=== PATIENT | female | born 2005 | race Caucasian/White ===

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

== ENCOUNTER 2024-03-07 16:10 | Emergency (ER) | payer OTHER, SELFPAY ==
[2024-03-07 16:16] VITALS: BP 117/78; PULSE 103; RESP 16; TEMP 36.9; O2SAT 98; BMI 24.0
--- NOTE | 2024-03-07 17:45 | ED.NURSE ---
Pt provided with meal tray.
[2024-03-07] MEDS: LORazepam 1 MG TABLET PO (18:19)
[2024-03-07 18:59] LABS: Amphetamine Screen Urine POSITIVE (Negative); Barbiturate Screen Urine Negative (Negative); Benzodiazepines Screen Urine Negative (Negative); Cannabinoid Screen Urine Negative (Negative); Cocaine Screen Urine Negative (Negative); Methadone Screen Urine Negative (Negative); Methamphetamines Screen Urine Negative (Negative); Opiate Screen Urine Negative (Negative); Oxycodone Screen Urine Negative (Negative); Phencyclidine Screen Urine Negative (Negative); Tricyclic Antidepressant Urine Negative (Negative)
[2024-03-07 19:07] LABS: Ur HCG Qualitative* Negative (Negative)
[2024-03-07 19:17] LABS: Basophils Absolute Auto 0.03 K/uL (0.00-0.30); Basophils Percent Auto 0.4 % (0.0-3.0); Eosinophils Absolute Auto 0.06 K/uL (0.00-0.50); Eosinophils Percent Auto 0.8 % (0.0-7.0); Hematocrit 39.5 % (33.0-51.0); Hemoglobin* 13.2 gm/dL (12.0-16.0); Immature Granulocytes Abs Auto 0.02 K/uL (0.00-0.30); Immature Granulocytes Pct Auto 0.3 %; Lymphocytes Absolute Auto 2.54 K/uL (0.90-2.90); Lymphocytes Percent Auto 34.9 % (20-44); Mean Corpuscular HGB Conc 33 gm/dL (32-36); Mean Corpuscular Hemoglobin 31 pg (26-34); Mean Corpuscular Volume 93 fL (80-100); Monocytes Percent Auto 6.2 % (0.0-11.0); Neutrophils Absolute Auto 4.17 K/uL (1.7-7.0); Neutrophils Percent Auto 57.4 % (42.0-72.0); Platelet Count* 197 K/uL (140-440); RDW Coefficient of Variation % 12.2 % (11.5-15.5); Red Blood Count 4.25 m/uL (4.00-5.20); White Blood Count* 7.27 K/uL (4.50-11.00)
[2024-03-07 19:18] LABS: PCR FLU A Negative PCR FLU A (Negative); PCR FLU B Negative PCR FLU B (Negative); SARS PCR* Negative SARS-CoV-2 (Negative)
[2024-03-07 19:29] LABS: Slide Review Reflex No
[2024-03-07 19:32] LABS: Albumin* 4.6 g/dL (3.3-5.0); Chloride* 102 mmol/L (96-114); Sodium* 136 mmol/L (135-149)
[2024-03-07 19:33] LABS: Potassium* 3.7 mmol/L (3.6-5.1)
[2024-03-07 19:35] LABS: Alkaline Phosphatase* 73 U/L (40-150); Anion Gap 8 mEq/L (7-15); Aspartate Amino Transferase* 25 U/L (12-35); Bilirubin Total* 0.1 mg/dL (0.1-1.5); Blood Urea Nitrogen* 14 mg/dL (5-24); Carbon Dioxide* 26 mmol/L (20-32); Creatinine* 0.8 mg/dL (0.5-1.5); Est. Creatinine Clearance* 80.57; Estimated Glomerular Filt Rate 108 ml/min; Total Protein* 7.5 g/dL (6.0-8.3)
--- NOTE | 2024-03-07 19:35 | ED.NURSE ---
Mental health evaluation performed on patient. Copy made of mental health evaluation.
[2024-03-07 19:36] LABS: Alanine Aminotransferase* 19 U/L (4-35); Calcium* 9.4 mg/dL (8.4-10.6); Glucose* 102 mg/dL (60-115)
--- NOTE | 2024-03-07 20:06 | ED_ITS ---
HPI - General Adult General Date Seen: 03/07/24 Chief complaint: Psychiatric Problem/Disorder Stated complaint: hallucinations Audio/Visual Time Seen by Provider: 03/07/24 16:37 History of Present Illness HPI narrative: This is a 18-year-old female presenting to the ER today by EMS for evaluations of hallucinations, thoughts of self-harm, anxiety, poor sleep. History is obtained in part from the patient and is supplemented by an on-call provider for the [facility] (phone number [phone]) She has a history of depression and anxiety apparently diagnosed a couple of years ago. It sounds like she is from [facility]. Her parents are . Her father provides funds for her support. She has caller ships and relies on her mother to find her college education. She is a senior at [employer]. She started having a significant mental health problems last spring, in September, around final. She apparently became extremely stressed out. She was having. Where she was not sleeping for a few days. She was apparently having some hallucinations. She ended up seeing the student health counselors at [employer]. She was started on medications (Lexapro, bupropion, I think). She also required a leave from school and extension of her spring course work. She was able to complete her final and finish the year. She went home to [place], [place] for the summer. It sounds like her mother was resistant for her seeking any mental health counselors. She says her mother did not want the patient to waste her money on mental health treatment. She was given a couple of months supply of mental health meds by the student health service at [employer] beginning last September. She ran out probably in November. She entered herself into a partial hospitalization program in [place] and was there for a couple of weeks in December. She found the [facility] to be very helpful. In particular she thought that the group counseling sessions were very beneficial for her. It sounds like she was supposed to have had an outpatient follow-up visit with a psychiatrist from the [facility]. She was supposed to see that psychiatrist in that provider's own private office. It sounds like the appointment never occurred. It sounds like also her psychiatrist had recommended a medication change last summer, but she declined and wanted to stay on her same meds. Her provider did give her a 3 month supply of her meds to help manage her through the fall semester at school. She is planning to see that psychiatrist in clinic when she goes home to [place] for the holiday break. She came back to start the fallester at [employer] this year. She is living in a house which is provided by [employer] but with some other roommates so she does not know very well. The patient lives in a basement bedroom. It sounds like she is socially distant from her roommates. There have been some interpersonal conflict between the patient and her roommate because her roommates have 1 of throw parties at the house. Her roommate does not like the parties because a loud noise and makes it difficult for her to sleep. The patient also does not like all the strangers in the house using the restroom facilities. The patient has a bathroom in the basement which is close to her bedroom which is primarily her bathroom, although it is not specifically a bathroom intended for her exclusive use. It sounds like the constitution party started leading to stress where she was falling behind on her course work. Ultimately it sounds like she did go through some process with the [place] administration and there were meetings between the patient and her housemates. She says that she wanted her housemates to treat her with more respect. She says that she does not really talk much to her roommates and they generally do not acknowledge her. It sounds like she is pretty isolated in her home. She has been falling behind on her course work which is led to increasing stress. She has also been working hard on her senior thesis, but is falling behind on that. She does have 1 friend, a homosexual man, who she thinks is fairly supportive for her. She thinks he has bipolar disorder too. She notes that he is not always supportive. He likes to take at doubles. He has been trying to encourage her to use at a bowls with him, but she does not not like to use them (she has occasionally experimented in the past but does not like the feeling) so she has been refusing. It has gotten to the point where it has led to some interpersonal strife between her and her friend. She had to tell him to stop asking her to use edibles with him. About 2 or 3 weeks ago she had a period where she was behind on her course work and she was doing some all night is with her friends to try to catch up. She was not sleeping more than a couple of hours per night. She had a day or any evening where she was hallucinating and hearing her own voice shouting at herself. She became very alarmed and was worried that she might do something to harm herself. She had her friend stay with her. It sounds like the voices and hallucinations past after 1 night and she was more less back to normal (anxious, behind on her course work, but not hallucinating). Today she had a negative interaction with 1 of her college professors. This again triggered a lot of anxiety in her and she again had hallucinations for several hours where her voice was shouting negative thoughts at her. She began to feel unsafe and was worried that she might take pills to harm herself. She did not want to take pills. Hallucinations were all she so shouting at her that she needs to ?get help. ? She has not actually done anything to harm herself. She does not have any persistent thoughts of suicide and has not really been making plans lately. Additional history from her mental health clinic is that she apparently went to the clinic today to make an appointment with an MD. There were no slots available. She then did some phone calls to a crisis line. After talking with the crisis line about the hallucinations and feeling unsafe, they called 911 and brought her here to the ER. The mental health provider also notes that the patient has scheduled multiple appointments to arrange outpatient mental health care this fall but has then canceled them. She did attend 1 appointment in the medical clinic a couple weeks ago for a cold. It sounds like the patient really does not have good pattern of outpatient follow-up The patient says that non she that she is here she is not having loosen a shins. She feels safe here but she is worried if we discharge her home she will probably get back to that same situation. She is worried that if she gets discharged she will probably take pills to arm herself. Related Data Home Medications ?Medication ?Instructions ?Recorded ?Confirmed bupropion HCl 150 mg 24 hr tablet, 150 mg PO DAILY 03/07/24 03/07/24 extended release bupropion HCl 300 mg 24 hr tablet, 300 mg PO DAILY 03/07/24 03/07/24 extended release doxycycline monohydrate 100 mg 100 mg PO BID 10/14/24 10/14/24 capsule escitalopram oxalate 10 mg tablet PO 03/07/24 escitalopram oxalate 20 mg tablet PO 03/07/24 ferrous sulfate 325 mg (65 mg 325 mg PO BID 03/07/24 03/07/24 iron) tablet (FeroSul) trazodone 100 mg tablet 100 mg PO QPM PRN 03/07/24 03/07/24 Allergies Allergy/AdvReac Type Severity Reaction Status Date / Time No Known Drug Allergies Allergy Verified 04/05/22 18:11 [facility] Social History Smoking Status: Never smoker Do you use any of these nicotine containing products: None Second hand tobacco smoke exposure: No How often do you have a drink containing alcohol: never How often do you have six or more drinks on one occasion: Never AUDIT-C Alcohol total score: 0 Non-prescribed substance use: denies use service: No Exam Narrative: Exam Narrative: Constitutional: Appears well-developed and well-nourished. Alert. Conversant. Non toxic. HENT: Head: Atraumatic. Nose: Nose normal. Mouth/Throat: Oral mucosa is clear and moist. no trismus. Eyes: Conjunctivae normal. EOM normal. Pupils equal, round, and reactive to light. No scleral icterus. Neck: Normal range of motion. Neck supple. No tracheal deviation present. Cardiovascular: Normal rate, regular rhythm. No gallop. No friction rub. No murmur heard. Pulmonary/Chest: Effort normal. No stridor. No respiratory distress. No wheezes. No rales. No rhonchi . Musculoskeletal: RUE: Normal range of motion. No tenderness. No deformity LUE: Normal range of motion. No tenderness. No deformity RLE: Normal range of motion. No edema. No tenderness. No deformity LLE: Normal range of motion. No edema. No tenderness. No deformity Neurological: Alert and oriented to person, place, and time. Normal strength. CN II-VII intact. No sensory deficit. GCS eye subscore is 4. GCS verbal subscore is 5. GCS motor subscore is 6. Normal coordination Skin: Skin is warm and dry. No rash noted. No pallor. Normal capillary refill. Psychiatric: She is had anxious and feels very depressed. She is chewing her fingernails. Somewhat disorganized in her history. See HPI, which I tried to make chronological. Overall she is very passive when discussing the events in her life. She says that now that she is here in the ER she is not hearing voices or actively hallucinating. She says when she has auditory hallucinations she hears her own voice shouting at her from other places in the room. Sometimes her voice tells her to get help. Sometimes her voice says negative things about her. Sometimes her voice is shouting gibberish at her. She does not have any ongoing immediate thoughts of self-harm but is worried that if we discharge her home the auditory hallucinations will probably come back. She is feeling socially isolated from her housemates. She will really only has 1 fairly close friend. She is having some interpersonal negativity with him because he has been wanting her to use at a bowls with him. She does not have any romantic relationships. Her mother's in [place]. Mother was not supportive in her getting outpatient mental health care. The patient does have some insight into the fact that she is struggling. She wants inpatient mental health care and is voluntarily requesting it. She is worried that she will get back into a cycle of hallucinations and thoughts of self-harm if she does not go to inpatient care. Const: Vital Signs, click to edit/add: Vital Signs - 24 hr 03/07/24 16:16 03/07/24 20:17 03/08/24 00:30 Temperature 98.5 F 98.8 F 99 F Pulse Rate [Pulse Oximeter] 103 H 103 H 89 Respiratory Rate 16 16 16 Blood Pressure [Ri ght Upper Arm] 117/78 119/72 113/73 Pulse Oximetry 98 97 96 Oxygen Delivery Me thod Room Air Room Air Room Air Course Vital Signs Vital signs: Initial Vital Signs Temperature 98.5 F 03/07/24 16:16 Temperature Source Temporal Artery Scan 03/07/24 16:16 Pulse Rate 103 H 03/07/24 16:16 Respiratory Rate 16 03/07/24 16:16 Blood Pressure 117/78 03/07/24 16:16 Blood Pressure Mean 91 03/07/24 16:16 Blood Pressure Position Sitting 03/07/24 16:16 Pulse Oximetry 98 03/07/24 16:16 Oxygen Delivery Method Room Air 03/07/24 16:16 Vital Signs Temperature 98.5 F 03/07/24 16:16 Pulse Rate 103 H 03/07/24 16:16 Respiratory Rate 16 03/07/24 16:16 Blood Pressure 117/78 03/07/24 16:16 Pulse Oximetry 98 03/07/24 16:16 Oxygen Delivery Method Room Air 03/07/24 16:16 Temperature 99 F 03/08/24 00:30 Pulse Rate 89 03/08/24 00:30 Respiratory Rate 16 03/08/24 00:30 Blood Pressure 113/73 03/08/24 00:30 Pulse Oximetry 96 03/08/24 00:30 Oxygen Delivery Method Room Air 03/08/24 00:30 Medications Administered Medications: Discontinued Medications Generic Name Dose Route Start Last Admin Trade Name Freq PRN Reason Stop Dose Admin Lorazepam 1 mg 03/07/24 18:02 03/07/24 18:19 Lorazepam 1 Mg Tablet PO 03/07/24 18:03 1 mg ONCE ONE Administration Olanzapine 10 mg 03/08/24 00:32 03/08/24 00:41 Olanzapine 5 Mg Tab.Rapdis PO 03/08/24 00:33 10 mg ONCE ONE Administration Medical Decision Making MDM Narrative Medical decision making narrative: 18-year-old female presenting to the ER today by EMS from her college with concerns for hallucinations, anxiety, insomnia, and thoughts of self-harm. Patient does have a history of bipolar disorder and anxiety and depression. Also she reports she has been diagnosed with borderline personality disorder. She is chronically on Lexapro and bupropion. In the past she had been prescribed trazodone for sleep but she has not been taking it lately. She also takes Adderall for ADHD. She has been under increasing stress due to school work and interpersonal struggles with her housemates at college. She has been very behind her course work and has been struggling, staying up late at night to study and do her course work. A couple of weeks ago she had an episode of auditory hallucinations which sound like it was very negative for her. These were not command hallucinations but while she was loosening she was having thoughts of self-harm and thoughts that she might take pills. She had another episode of auditory hallucinations today and again had thoughts of self-harm. She called 911 after she reached out for outpatient help. She came voluntarily with emergency medical providers to the ER. She does want help. She would like to be admitted. She has done well in the past with a partial hospitalization program and group therapy and feels like she could do well with that again. She is worried that if we discharge her home she likely will have escalation of her hallucinations, escalation of anxiety, and may do something to herself. At the time she is here in the ER she says she does not want to hurt herself currently. She is cooperative. She is polite and interacts well with nurses. She was initially very anxious based on her behaviors and answers, vigorously chewing Her fingernails. Less anxious after oral Ativan. Since she is doing so well here in the ER, I was considering possible discharge with outpatient follow-up. I did reach out to the mental health clinic at [employer], where she is a student. They do have openings and could potentially see her as early as tomorrow morning. However they also note that she is made, and then failed to keep, several appointments already this fall. Although I do think there are potential resources available for this patient in the outpatient setting, she has displayed a pattern where she has been unable to follow through for outpatient care. It also sounds like she has pretty limited social supports in her college environment. Her mother lives in [place], [place]. It also sounds like her mother has been somewhat on supportive when she has sought outpatient mental health treatment in the past. Laboratory workup is reassuring. All blood work is normal. Urine drug screen is positive for amphetamines but negative for methamphetamine. She does take Adderall (not every day) for ADHD and this would explain her positive urine amphetamine screen. I do not think her hallucinations are due to amphetamine psychosis. She is not presenting with a sympathomimetic toxidrome. At this point with reasonable clinical judgment I think she is medically clear for inpatient mental health admission. Addendum-patient was accepted to inpatient mental health care at the [facility], in [place], [place] at around midnight. We completed her M tele packet and transfer paperwork. Unfortunately her transfer will be delayed by many hours because of EMS capacity. Were anticipating that she will likely be able to transfer at about 10:00 a.m. in the morning once ambulance rings become available. Therefore she left the board here in the ER overnight. I updated the patient around midnight. She was endorsing that some of her loose adhesions were coming back. Will add Zyprexa to help keep her calm sleep, and prevent occlusion is since overnight. She is agreeable. She understands the delay. Lab Data Labs: Lab Results 03/07/24 03/07/24 03/07/24 Range/Units 18:30 18:35 18:40 WBC 7.27 (4.50-11.00) K/uL RBC 4.25 (4.00-5.20) m/uL Hgb 13.2 (12.0-16.0) gm/dL Hct 39.5 (33.0-51.0) % MCV 93 (80-100) fL MCH 31 (26-34) pg MCHC 33 (32-36) gm/dL RDW Coeff of Marvin 12.2 (11.5-15.5) % Plt Count 197 (140-440) K/uL Neut % (Auto) 57.4 (42.0-72.0) % Lymph % (Auto) 34.9 (20-44) % [place] % (Auto) 6.2 (0.0-11.0) % Eos % (Auto) 0.8 (0.0-7.0) % Baso % (Auto) 0.4 (0.0-3.0) % Neut # (Auto) 4.17 (1.7-7.0) K/uL Lymph # (Auto) 2.54 (0.90-2.90) K/uL [place] # (Auto) 0.50 (0.00-0.90) K/UL Eos # (Auto) 0.06 (0.00-0.50) K/uL Baso # (Auto) 0.03 (0.00-0.30) K/uL Abs Immat Gran (auto) 0.02 (0.00-0.30) K/uL Imm/Tot Granulo (auto) 0.3 % Sodium 136 (135-149) mmol/L Potassium 3.7 (3.6-5.1) mmol/L Chloride 102 (96-114) mmol/L Carbon Dioxide 26 (20-32) mmol/L Anion Gap 8 (7-15) mEq/L BUN 14 (5-24) mg/dL Creatinine 0.8 (0.5-1.5) mg/dL Estimated Creat Clear 80.57 Estimated GFR 108 ml/min Glucose 102 (60-115) mg/dL Calcium 9.4 (8.4-10.6) mg/dL Total Bilirubin 0.1 (0.1-1.5) mg/dL AST 25 (12-35) U/L ALT 19 (4-35) U/L Alkaline Phosphatase 73 (40-150) U/L Total Protein 7.5 (6.0-8.3) g/dL Albumin 4.6 (3.3-5.0) g/dL TSH 2.740 (0.270-4.200) uIU/mL Urine HCG, Qual Negative (Negative) Salicylates < 1.0 L (1.0-10) mg/dL Urine Opiates Screen Negative (Negative) Ur Oxycodone Screen Negative (Negative) Urine Methadone Screen Negative (Negative) Acetaminophen < 10.0 L (10.0-30.0) ug/mL Ur Barbiturates Screen Negative (Negative) U Tricyclic Antidepress Negative (Negative) Ur Phencyclidine Scrn Negative (Negative) Ur Amphetamines Screen POSITIVE A (Negative) U Methamphetamines Scrn Negative (Negative) U Benzodiazepines Scrn Negative (Negative) Urine Cocaine Screen Negative (Negative) U Marijuana (THC) Screen Negative (Negative) Ur Drug Screen Comment See Note SARS-CoV-2 (PCR) Negative SARS-CoV-2 (Negative) Influenza Type A (PCR) Negative PCR FLU A (Negative) Influenza Type B (PCR) Negative PCR FLU B (Negative) Discharge Plan Discharge Clinical Impression: Auditory hallucinations, Thoughts of self harm, Anxiety Prescriptions: No Action trazodone 100 mg tablet 100 mg PO QPM PRN doxycycline monohydrate 100 mg capsule 100 mg PO BID ferrous sulfate [FeroSul] 325 mg (65 mg iron) tablet 325 mg PO BID escitalopram oxalate 10 mg tablet PO escitalopram oxalate 20 mg tablet PO bupropion HCl 300 mg tablet extended release 24 hr 300 mg PO DAILY bupropion HCl 150 mg tablet extended release 24 hr 150 mg PO DAILY Follow Up/Referrals: Provider,Not a Local [Primary Care Provider] -
[2024-03-07 20:17] VITALS: BP 119/72; PULSE 103; RESP 16; TEMP 37.1; O2SAT 97
[2024-03-07 20:30] LABS: Acetaminophen* < 10.0 ug/mL (10.0-30.0); Salicylate* < 1.0 mg/dL (1.0-10)
[2024-03-08 00:30] VITALS: BP 113/73; PULSE 89; RESP 16; TEMP 37.2; O2SAT 96
[2024-03-08] MEDS: OLANZapine 5 MG TAB.RAPDIS 10 MG PO (00:41)
--- NOTE | 2024-03-08 11:38 | ED.NURSE ---
Patient transferred to [place] via EMS.
== END 2024-03-08 11:47 | disposition short-term general hospital (02) ==
PROVIDERS: Emergency Provider Emergency Medicine
DX: R44.3 Hallucinations, unspecified (principal); F41.9 Anxiety disorder, unspecified; R45.851 Suicidal ideations
CPT/HCPCS: 36415; 80053; 80143; 80179; 80306; 81025; 84443; 85025; 87631; 99284; 99285; A9270

== ENCOUNTER 2024-03-08 11:32 | Outpatient (CLI) | payer OTHER, SELFPAY | END 2024-03-08 11:33 | disposition home or self-care (01) | LOC: AMB 03-13 10:21 | PROVIDERS: Visit Provider Emergency Medicine Emergency Medical Services | DX: R45.851 Suicidal ideations (principal); R44.0 Auditory hallucinations | CPT/HCPCS: A0425; A0427 ==

== ENCOUNTER 2024-03-26 22:18 | Outpatient (CLI) | payer OTHER, SELFPAY ==
--- OUTSIDE RECORDS SUMMARY | 2024-03-31 01:52 | XMS_ITS | Patient Health Record ---
Author Organization [facility] La Radha [facility] Address [address] [place], [place] [id number] Care Team Providers Care Multimedia Programmer Name Role Phone Gerardo Barnett Unavailable [phone] Reason For Referral No Information Immunizations Vaccine [...]
--- OUTSIDE RECORDS SUMMARY | 2024-03-31 01:52 | XMS_ITS | Clinical Summary ---
Author Organization [facility] Address [address] [place] [address] Care Team Providers Care Underground Distribution Engineer Name Role Phone Pcp, Pt Declines Primary Care Provider [phone] Source Comments You are receiving this document as you are listed as the primary care provider,follow-up provider, or the patient has been referred to you for consultation.This is in compliance with the Medicare and[facility] EHR Incentive Program,which states Providers who transition their patient to another setting of careor provider of care or refers their patient to another provider of care shouldprovide summary care record for each transition of care or referral. [facility] Allergies No known active allergies Medications Medication [...] Health Maintenance Due Date Last Done Comments Cervical Cancer Screening Due 2003 Chlamydia 2003 Hep C Screening (Preventive Services) [...] on patient's age to complete this topic Infant RSV Aged Out No longer eligi ble based on patient's age to complete this topic MCV4 Aged Out No longer eligi ble based on patient's age to complete this topic Pneumococcal Aged Out No longer eligi ble based on patient's age to complete this topic Care Teams Underground Distribution Engineer Relationship Specialty Start Date End Date Pcp, a[place]ul [place] [address] PCP - General 07/22/22
== END 2024-03-26 22:19 | disposition home or self-care (01) ==
LOC: AMB 03-31 01:50
PROVIDERS: Visit Provider Family Medicine
DX: F29 Unspecified psychosis not due to a substance or known physiological condition (principal)
CPT/HCPCS: A0425; A0427

== ENCOUNTER 2024-03-26 22:53 | Emergency (ER) | payer OTHER, SELFPAY ==
--- OUTSIDE RECORDS SUMMARY | 2024-03-26 22:57 | XMS_ITS | Patient Health Record ---
Author Organization [facility] Address [address] [place], [place] [id number] Care Team Providers Care Internal Combustion Engine Inspector Name Role Phone Gerardo Barnett Unavailable [phone] Reason For Referral No Information Immunizations Vaccine Route Administration Date Status Comme nts IH}FLU IM Intramuscular 04/05/2020 Administered Social History Alcohol Screen (Audit-C) Question Answer Notes Did you have a drink containing alcohol in the p ast year? No Points 0 Interpretation Negative Sexual History Question Answer Notes Had sex in the past 12 months (vaginal, oral, or anal)? No Have you ever had a Sexually transmitted disease ? No Last menstrual period 03/31/2020 Problems No Known Problems Plan Of Treatment No Information
--- OUTSIDE RECORDS SUMMARY | 2024-03-26 22:57 | XMS_ITS | Clinical Summary ---
Author Organization [facility] Address [id number] [address] Care Team Providers Care Preforming Machine Operator Name Role Phone Pcp, Pt Declines Primary Care Provider Source Comments You are receiving this document as you are listed as the primary care provider,follow-up provider, or the patient has been referred to you for consultation.This is in compliance with the Medicare and[facility] EHR Incentive Program,which states Providers who transition their patient to another setting of careor provider of care or refers their patient to another provider of care shouldprovide summary care record for each transition of care or referral. [id number] Allergies No known active allergies Medications Medication Sig Dispensed Refills Start Date End Date Status PROZAC 40 MG capsule Take 1 Capsule (40 mg) by mouth daily. 07/15/2022 Active Active Problems Problem Noted Date Diagnosed Date Severe episode of recurrent major depressive disorder, without psychotic features 08/20/2022 Generalized anxiety disorder 08/20/2022 Depressive disorder 07/24/2022 History of suicidal ideation 07/24/2022 Other specified eating disorder 07/23/2022 Social anxiety disorder 07/23/2022 Social History Tobacco Use Types Packs/Day Years Used Date Smoking Tobacco: Never Tobacco Cessation:Counseling Given: Not Answered Alcohol Use Standard Drinks/Week Comments Never 0 (1 standard drink = 0.6 oz pur e alcohol) Sex and Gender Information Value Date Recorded Sex Assigned at Not on file Gender Identity Not on file Sexual Orientation Not on file Last Filed Vital Signs Vital Sign Reading Time Taken Comments Blood Pressure 115/83 09/16/2022 7:48 AM CDT Pulse 86 09/16/2022 7:48 AM CDT Temperature 36.6 ??C (97.9 ??F) 09/16/2022 7:46 AM CD T Respiratory Rate - - Oxygen Saturation - - Inhaled Oxygen Concentration - - Weight 45 kg (99 lb 3.2 oz) 09/16/2022 7:46 AM C DT Height 153.4 cm (5' 0.39) 09/16/2022 7:46 AM CD T Body Mass Index 19.12 09/16/2022 7:46 AM CDT Plan of Treatment Health Maintenance Due Date Last Done Comments Chlamydia 2003 Hep C Screening (Preventive Services) 2003 HPV Vaccine (1 - 3-dose series) 2018 HIV Screening (Preventive Services) 2019 Adult Preventive Visit 2021 DTaP/Tdap/Td (1 - Tdap) 2022 HepB (1) 2022 COVID-19 Vaccine (1 - 2023-2 5 season) 2024 Influenza (#1) 2024 03/05/2021 Zoster/Shingles (1 of 2) 2053 HepA Aged Out No longer eligi ble based on patient's age to complete this topic Hib Aged Out No longer eligi ble based on patient's age to complete this topic IPV (Polio) Aged Out No longer eligi ble based on patient's age to complete this topic RSV Aged Out No longer eligi ble based on patient's age to complete this topic MCV4 Aged Out No longer eligi ble based on patient's age to complete this topic Pneumococcal Aged Out No longer eligi ble based on patient's age to complete this topic Care Teams Preforming Machine Operator Relationship Specialty Start Date End Date Pcp, [place] [address] PCP - General 07/22/22
[2024-03-26 23:03] VITALS: BP 131/82; PULSE 106; RESP 16; TEMP 36.6; O2SAT 99; BMI 20.8
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
[2024-03-27 00:46] LABS: Basophils Percent Auto 0.3 % (0.0-3.0); Eosinophils Percent Auto 0.3 % (0.0-7.0); Hematocrit 42.4 % (33.0-51.0); Immature Granulocytes Pct Auto 0.9 %; Lymphocytes Percent Auto 19.9 % (20-44); Mean Corpuscular HGB Conc 33 gm/dL (32-36); Mean Corpuscular Hemoglobin 31 pg (26-34); Mean Corpuscular Volume 94 fL (80-100); Neutrophils Percent Auto 72.6 % (42.0-72.0); Platelet Count* 246 K/uL (140-440); RDW Coefficient of Variation % 12.2 % (11.5-15.5); Red Blood Count 4.49 m/uL (4.00-5.20)
[2024-03-27 00:47] LABS: Slide Review Reflex No
[2024-03-27 00:56] LABS: Amphetamine Screen Urine POSITIVE (Negative); Barbiturate Screen Urine Negative (Negative); Benzodiazepines Screen Urine Negative (Negative); Cannabinoid Screen Urine POSITIVE (Negative); Cocaine Screen Urine Negative (Negative); Methadone Screen Urine Negative (Negative); Methamphetamines Screen Urine Negative (Negative); Opiate Screen Urine Negative (Negative); Oxycodone Screen Urine Negative (Negative); Phencyclidine Screen Urine Negative (Negative); Tricyclic Antidepressant Urine Negative (Negative)
[2024-03-27 01:00] VITALS: BP 124/69; PULSE 86; RESP 16; O2SAT 99
[2024-03-27 01:30] LABS: Chloride* 99 mmol/L (96-114); Sodium* 136 mmol/L (135-149)
[2024-03-27 01:31] LABS: Potassium* 3.8 mmol/L (3.6-5.1)
[2024-03-27 01:33] LABS: Alanine Aminotransferase* 25 U/L (4-35); Alkaline Phosphatase* 87 U/L (40-150); Anion Gap 8 mEq/L (7-15); Aspartate Amino Transferase* 33 U/L (12-35); Bilirubin Direct* 0.1 mg/dL (0.0-0.5); Bilirubin Total* 0.1 mg/dL (0.1-1.5); Blood Urea Nitrogen* 7 mg/dL (5-24); Calcium* 9.7 mg/dL (8.4-10.6); Carbon Dioxide* 29 mmol/L (20-32); Creatinine* 0.7 mg/dL (0.5-1.5); Est. Creatinine Clearance* 113.79; Estimated Glomerular Filt Rate 126 ml/min; Glucose* 70 mg/dL (60-115); Total Protein* 8.2 g/dL (6.0-8.3)
[2024-03-27 01:34] LABS: Acetaminophen* < 10.0 ug/mL (10.0-30.0); Ethanol* < 0.01 % (0.01-0.03); Salicylate* < 1.0 mg/dL (1.0-10)
--- OUTSIDE RECORDS SUMMARY | 2024-03-27 01:43 | XMS_ITS | Clinical Summary ---
Author Organization [facility] Address [address] [place] [address] Care Team Providers Care Physical Therapy Director Name Role Phone Pcp, Pt Declines Primary Care Provider [phone] Source Comments You are receiving this document as you are listed as the primary care provider,follow-up provider, or the patient has been referred to you for consultation.This is in compliance with the Medicare and[facility] EHR Incentive Program,which states Providers who transition their patient to another setting of careor provider of care or refers their patient to another provider of care shouldprovide summary care record for each transition of care or referral. [facility] Allergies No known active allergies Medications Medication [...] age to complete this topic Care Teams Physical Therapy Director Relationship Specialty Start Date End Date Pcp, [place] [address] PCP - General 07/22/22
[2024-03-27] MEDS: QUETIAPINE 100 MG TABLET PO (01:45)
[2024-03-27 04:00] VITALS: RESP 16
[2024-03-27 08:25] VITALS: BP 141/82; PULSE 98; RESP 16; O2SAT 99
== END 2024-03-27 08:27 | disposition home or self-care (01) ==
PROVIDERS: Emergency Provider Family Medicine
DX: T40.711A Poisoning by cannabis, accidental (unintentional), initial encounter (principal)
CPT/HCPCS: 36415; 80048; 80076; 80143; 80179; 80306; 82077; 85025; 99283; 99284; A9270

== ENCOUNTER 2024-11-06 18:58 | Emergency (ER) | payer OTHER, SELFPAY ==
--- OUTSIDE RECORDS SUMMARY | 2024-11-06 19:00 | XMS_ITS | Patient Health Record ---
Author Organization [facility] La Radha [facility] Address [address] [place], [place] [id number] Care Team Providers Care Brazer Helper Induction Name Role Phone Gerardo Barnett Unavailable [phone] Reason For Referral No Information Immunizations Vaccine [...]
--- OUTSIDE RECORDS SUMMARY | 2024-11-06 19:00 | XMS_ITS | Clinical Summary ---
Author Organization [facility] Address [address] [address] Care Team Providers Care Clinical Training Coordinator Name Role Phone Pcp, Pt Declines Primary Care Provider Source Comments You are receiving this document as you are listed as the primary care provider,follow-up provider, or the patient has been referred to you for consultation.This is in compliance with the Medicare and[facility] EHR Incentive Program,which states Providers who transition their patient to another setting of careor provider of care or refers their patient to another provider of care shouldprovide summary care record for each transition of care or referral. [facility] Allergies No known active allergies Medications * This document contains information received from the source organization and may not represent a complete record from that organization. PROZAC 40 MG capsule Take 1 Capsule [...] drink = 0.6 oz pur e alcohol) Comments No Sex and Gender Information Value Date Recorded Sex Assigned at Not on file Legal Sex Female 9:18 AM PRODUCTION GENERALIST Gender Identity Not on file Sexual Orientation Not on file Last Filed Vital Signs Vital Sign Reading Time Taken Comments Blood Pressure 115/83 09/16/2022 7:48 AM CDT Pulse 86 09/16/2022 7:48 AM CDT Temperature 36.6 C (97.9 F) 09/16/2022 7:46 AM CDT Respiratory Rate - - Oxygen Saturation - [...] 2003 Hep C Screening (Preventive Services) 2003 MenB Immunization Discussion 2003 HPV Vaccine (1 - 3-dose series) 2018 HIV Screening (Preventive Services) 2019 Adult Preventive Visit 2021 DTaP/Tdap/Td Vaccine (1 - Tdap) 2022 HepB Vaccine (1) 2022 COVID-19 Vaccine (1 - 2023-2 5 season) 2024 Influenza Vaccine (Season Ended) 2025 03/05/20 21 Zoster/Shingles Vaccine (1 of 2) 2053 HepA Vaccine Aged Out No longer eligi ble based on patient's age to complete this topic Hib Vaccine Aged Out No longer eligi ble based on patient's age to complete this topic IPV (Polio) Vaccine Aged Out No longe r eligible based on patient's age to complete this topic MCV4 Vaccine Aged Out No longer eligi ble based on patient's age to complete this topic Pneumococcal Vaccine Aged Out No long er eligible based on patient's age to complete this topic Insurance [employer] Care Teams Clinical Training Coordinator Relationship Specialty Start Date End Date Pcp, Pt El, [place], [place] [id number] PCP - General 07/22/22
[2024-11-06 19:09] VITALS: BP 152/100; PULSE 128; RESP 20; TEMP 36.3; O2SAT 100; BMI 23.4
[2024-11-06] MEDS: LORazepam 0.5 MG TABLET PO ×2 (19:46→20:48)
--- NOTE | 2024-11-06 20:07 | ED.PSYCH ---
HPI - Psych General Date Seen: 11/06/24 Chief Complaint: Psychiatric Problem/Disorder Stated Complaint: Sleep deprivation, stress concerns Time Seen by Provider: 11/06/24 19:26 Source: patient Mode of arrival: ambulatory Limitations: no limitations History of Present Illness HPI Narrative: Patient is a 19-year-old female presenting to the emergency department for anxiety and inability to sleep. She states for the past couple weeks she has been feeling extremely anxious and has been unable to sleep. States to fall sleep and only gets a few hours at most. She is feeling overwhelmed with school and work along with recently having switched dorms at her college. She thinks have been getting too stressful for her she states so she is actually going back home to [place] for the summer on Thursday. Original plan was for her to stay here for the summer. States that difficulty sleeping is causing her more and more stress and she is afraid that she does not get any sleep she will have a psychotic break. Has had issues with sleeping in the past also. That time she was also having suicidal thoughts and ended up being inpatient. She denies any suicidal homicidal thoughts at this time. She is not feel like she is going to harm herself. She is just worried about the lack of sleep. She denies any hallucinations at this time. No other concerns noted. She states her parents are aware of the situation that is going on. She does states her mom was on very supportive of her getting mental health treatment. Related Data Home Medications ?Medication ?Instructions ?Recorded ?Confirmed bupropion HCl 150 mg 24 hr tablet, 150 mg PO DAILY 03/07/24 11/06/24 extended release bupropion HCl 300 mg 24 hr tablet, 300 mg PO DAILY 03/07/24 11/06/24 extended release quetiapine 150 mg tablet 150 mg PO QPM 11/03/24 11/03/24 dextroamphetamine-amphetamine 10 1 tab PO DAILY 11/06/24 11/06/24 mg tablet dextroamphetamine-amphetamine ER 1 cap PO QAM 11/06/24 11/06/24 15 mg 24hr capsule,extend release escitalopram oxalate 10 mg tablet 10 mg PO DAILY 11/06/24 11/06/24 escitalopram oxalate 20 mg tablet 20 mg PO DAILY 11/06/24 11/06/24 quetiapine 50 mg tablet (Seroquel) 50 mg PO ONCE HS 11/06/24 11/06/24 Previous Rx's ?Medication ?Instructions ?Recorded amoxicillin 500 mg capsule 500 mg PO TID 10 days #30 caps 11/03/24 ciprofloxacin 0.3 %-dexamethasone 4 drp otic (ear) BID 7 days #7.5 mL 11/03/24 0.1 % ear drops,suspension lorazepam 0.5 mg tablet 0.5 mg PO DAILY PRN #8 tabs 11/06/24 Allergies Allergy/AdvReac Type Severity Reaction Status Date / Time No Known Drug Allergies Allergy Verified 11/03/24 18:10 Review of Systems Status of ROS: Reports: 10 or more systems reviewed and unremarkable except as noted in History and below [facility] Social History Smoking Status: Never smoker Do you use any of these nicotine containing products: None Second hand tobacco smoke exposure: No How often do you have a drink containing alcohol: never How often do you have six or more drinks on one occasion: Never AUDIT-C Alcohol total score: 0 Non-prescribed substance use: marijuana (any form) service: No Exam Narrative: Exam Narrative: Const: Well-nourished, Well-developed, in mild distress Eyes: PERRL, no conjunctival injection, and symmetrical lids HENT: Atraumatic external nose and ears. Moist mucous membranes. Neck: Symmetric, trachea midline, No thyromegaly. CVS: Tachycardia, No murmurs or gallops. Peripheral pulses 2+ and equal in all extremities RESP: Unlabored respiratory effort. Clear to auscultation bilaterally. GI: Nontender/Nondistended, No rebound or guarding. MSK:Extremities w/o deformity, Normal Active ROM Skin: Warm, Dry. No rashes or lesions. Neuro: Normal Muscle tone, No focal neurological deficits. Psych: Awake, Alert, & Oriented x3. Slightly pressured speech. Const: Vital Signs, click to edit/add: Vital Signs - 24 hr 11/06/24 19:09 11/06/24 20:14 11/06/24 20:51 Temperature 97.4 F L Pulse Rate [Pulse Oximeter] 128 H 108 H Respiratory Rate 20 Blood Pressure [Ri ght Upper Arm] 152/100 H 135/91 H Pulse Oximetry 100 Oxygen Delivery Me thod Room Air Course Vital Signs Vital signs: Initial Vital Signs Temperature 97.4 F L 11/06/24 19:09 Temperature Source Temporal Artery Scan 11/06/24 19:09 Pulse Rate 128 H 11/06/24 19:09 Respiratory Rate 20 11/06/24 19:09 Blood Pressure 152/100 H 11/06/24 19:09 Blood Pressure Mean 117 H 11/06/24 19:09 Blood Pressure Position Sitting 11/06/24 19:09 Pulse Oximetry 100 11/06/24 19:09 Oxygen Delivery Method Room Air 11/06/24 19:09 Vital Signs Temperature 97.4 F L 11/06/24 19:09 Pulse Rate 128 H 11/06/24 19:09 Respiratory Rate 20 11/06/24 19:09 Blood Pressure 152/100 H 11/06/24 19:09 Pulse Oximetry 100 11/06/24 19:09 Oxygen Delivery Method Room Air 11/06/24 19:09 Temperature 97.4 F L 11/06/24 19:09 Pulse Rate 108 H 11/06/24 20:51 Respiratory Rate 20 11/06/24 19:09 Blood Pressure 135/91 H 11/06/24 20:14 Pulse Oximetry 100 11/06/24 19:09 Oxygen Delivery Method Room Air 11/06/24 19:09 Medications Administered Medications: Generic Name Dose Route Start Last Admin Trade Name Freq PRN Reason Stop Dose Admin Lorazepam 0.5 mg 11/06/24 20:45 11/06/24 20:48 Lorazepam 0.5 Mg Tablet PO 11/06/24 20:46 0.5 mg ONCE ONE Administration Discontinued Medications Generic Name Dose Route Start Last Admin Trade Name Freq PRN Reason Stop Dose Admin Lorazepam 0.5 mg 11/06/24 19:43 11/06/24 19:46 Lorazepam 0.5 Mg Tablet PO 11/06/24 19:44 0.5 mg ONCE ONE Administration MDM - Psych MDM Narrative Medical decision making narrative: Patient is a 19-year-old female presenting to the emergency department for anxiety and difficulty sleeping. Based on my conversation with her I do not believe she is a risk to herself or others at this time I do not believe she needs inpatient treatment. She appears to be taking care of herself adequately she is just having difficulty sleeping and is very anxious. I spoke to her about trying some Ativan she is agreeable to this. She states she has had hydroxyzine previously but did not seem to affect her much. After the 1st half tablet of Ativan she is feeling much better. She was still having some anxiety and I will give her another 0.5 mg of Ativan. This time I believe she is safe for discharge. She states she is setting up outpatient treatment in [place] and based on previous ED notes here she has done outpatient treatment in [place], where she lives previously. I do believe she is safe for discharge. I will discharge her home with a total of 4 mg of Ativan to use over the next few days until she can get back to [place] on Thursday. Patient did mention that she will contact her psychiatrist tomorrow morning. Discharge Plan Discharge Clinical Impression: Acute anxiety Patient Disposition: Home, Self-Care Condition: Stable Instructions: Anxiety (ED) Additional Instructions: Take the Ativan as prescribed. I recommend starting with 0.5 mg at night to help with sleep. You can take a 2nd 0.5 mg tablet if needed. Do not use more than 1 mg a night. Make sure to follow-up outpatient like you mentioned when you get to [place]. Return for new worsening symptoms Prescriptions: New lorazepam 0.5 mg tablet 0.5 mg PO DAILY PRNQty: 8 0RF Rx Instructions: Use 1-2 tabs at night to help with anxiety No Action quetiapine 150 mg tablet 150 mg PO QPM amoxicillin 500 mg capsule 500 mg PO TID 10 Days Qty: 30 0RF ciprofloxacin-dexamethasone 0.3-0.1 % drops,suspension 4 drp otic (ear) BID 7 Days Qty: 7.5 0RF bupropion HCl 300 mg tablet extended release 24 hr 300 mg PO DAILY bupropion HCl 150 mg tablet extended release 24 hr 150 mg PO DAILY dextroamphetamine-amphetamine 10 mg tablet 1 tab PO DAILY dextroamphetamine-amphetamine 15 mg capsule,extended release 24hr 1 cap PO QAM escitalopram oxalate 10 mg tablet 10 mg PO DAILY escitalopram oxalate 20 mg tablet 20 mg PO DAILY quetiapine [Seroquel] 50 mg tablet 50 mg PO ONCE HS Rx Instructions: administer on day 1 of therapy Follow Up/Referrals: Provider,Not a Local [Primary Care Provider, Family Practice] Stand Alone Forms: [employer] Info Instructions
[2024-11-06 20:14] VITALS: BP 135/91
[2024-11-06 20:51] VITALS: PULSE 108
== END 2024-11-06 21:16 | disposition home or self-care (01) ==
PROVIDERS: Emergency Provider Student in an Organized Health Care Education/Training Program
DX: F41.9 Anxiety disorder, unspecified (principal); G47.9 Sleep disorder, unspecified
CPT/HCPCS: 99283; A9270